=== PATIENT | male | born 2000 | race Caucasian/White ===

== ENCOUNTER → 2021-10-01 13:15 | Outpatient (CLI) | payer BC, SELFPAY | PROVIDERS: Visit Provider Family Medicine | DX: Z23 Encounter for immunization (principal) ==

== ENCOUNTER 2022-01-19 01:45 | Emergency (ER) | payer BC, SELFPAY ==
[2022-01-19 01:45] VITALS: BP 144/77; PULSE 87; RESP 15; TEMP 36.2; O2SAT 96; BMI 27.9
--- NOTE | 2022-01-19 02:00 | RAD_ITS ---
STUDY: X-RAY CHEST REASON FOR EXAM: Male, 21 years old. cp TECHNIQUE: Single AP portable view of the chest. COMPARISON: None. FINDINGS: The lungs are clear and expanded. There is no demonstrated pleural abnormality. Normal size heart. Normal mediastinum and dom. Normal visualized pulmonary arteries. Normal visualized aortic arch and descending thoracic aorta. Normal visualized thoracic spine. Normal visualized ribs, clavicles, and shoulders. There is no demonstrated abnormality of the visualized soft tissue structures of the upper abdomen. RAD/Chest 1 View (Portable) IMPRESSION: Normal x-ray examination of the chest. Electronically Signed: Viv Villavicencio MD at 4:11 EDT ,
--- NOTE | 2022-01-19 02:00 | EKG12_ITS ---
Test Reason : CP Blood Pressure : / mmHG Vent. Rate : 099 BPM Atrial Rate : 099 BPM P-R Int : 142 ms QRS Dur : 098 ms QT Int : 348 ms P-R-T Axes : 070 035 025 degrees QTc Int : 446 ms Normal sinus rhythm Normal ECG Confirmed by IRAJ VALENCIA, MURIEL ([id number]), purchase request editor ANISH SLOAN ([id number]) on 01/19/2022 10:41:40 AM Referred By: ANGE Confirmed By:MURIEL GALO MD
--- NOTE | 2022-01-19 02:03 | EX.ED.DYSGE1 ---
HPI History of Present Illness Chief Complaint: Chest Pain Informant: patient Onset/Context/Timing Onset: Today Current Severity: Mild Maximum Severity: Moderate Narrative Narrative: Patient presents secondary to chest pain. He states he woke from sleep approximate 45 minutes ago with pain just to the right of the sternum. He describes it as a pressure. He states when he went to bed last night he had some mild pain over the left anterior lateral chest. He does report some shortness of breath. He states he is just getting over a stomach bug with diarrhea. He has not had as much to eat as normal the last several days. He has not noted fever or chills. [facility] Medical History Anxiety Depression Home Medications fluoxetine 20 mg DAILY 01/19/22 [History Last Taken Unknown] Allergy/AdvReac Type Severity Reaction Status Date / Time No Known Allergies Allergy Verified 01/19/22 01:51 Surgical History no surgical history Social History Smoking Status: Never smoker ROS ROS ED Constitutional Constitutional ED: Denies chills or fever(s) Eyes Eyes: Denies change in vision ENT ENT ED: Denies sore throat Cardiovascular Cardiovascular: Reports chest pain Respiratory/Chest Respiratory/Chest: Reports dyspnea; Denies cough Gastrointestinal Gastrointestinal: Reports diarrhea; Denies abdominal pain, nausea or vomiting Genitourinary Genitourinary ED: Denies dysuria Musculoskeletal Musculoskeletal: Denies back pain Integumentary Denies rash Neurologic Neurologic: Denies headache(s) or weakness Allergic/Immunologic Allergic/Immunologic ED: Denies urticaria EXAM Physical Exam Const Vital Signs: 01/19/22 01:45 01/19/22 01:49 01/19/22 03:16 Temperature 97.1 F L 98.2 F Temperature Source Temporal Temporal Pulse Rate 87 79 Respiratory Rate 15 18 Respiratory Effort Normal Non-Labored Respiratory Pattern Normal Blood Pressure 144/77 H 136/89 H Blood Pressure Mean 99 104 Pulse Ox 96 99 Oxygen Delivery Method Room Air Room Air Positive well nourished and well developed General Appearance ED: well developed HEENT Reports moist mucous membranes Eyes PERRL and EOMs intact bilaterally Neck supple Chest Wall inspection of chest normal and palpation of chest normal Resp normal respiratory effort and clear to auscultation bilaterally Cardio regular rate and regular rhythm GI Auscultation: normoactive bowel sounds Palpation: soft and tender epigastric (Mild epigastric tenderness); Negative for guarding or rebound tenderness present Extremity normal to inspection Neuro oriented x3 Sensorium / Orientation: alert Psych mental status grossly normal Skin no rashes or lesions noted MDM MDM MDM Narrative Medical decision making narrative: Lab work, EKG, chest x-ray obtained. Patient given IV Protonix. Lab Data Attestation: I reviewed the patient's lab results. Labs: Laboratory Results - last 24 hr 01/19/22 01/19/22 01/19/22 02:20 02:20 02:20 WBC 11.0 RBC 4.96 Hgb 15.1 Hct 42.0 MCV 84.7 MCH 30.4 MCHC 36.0 RDW Std Deviation 36.8 RDW Coeff of Marium 11.9 Plt Count 323 MPV 9.7 Immature Gran % (Auto) 0.200 Neut % (Auto) 72.1 H Lymph % (Auto) 14.6 L [place] % (Auto) 12.5 H Eos % (Auto) 0.5 Baso % (Auto) 0.1 Absolute Neuts (auto) 7.9 H Absolute Lymphs (auto) 1.60 Nucleated RBC % 0 D-Dimer Quant (PE/DVT) < 0.27 L Sodium 137 Potassium 3.6 Chloride 104 Carbon Dioxide 24.0 Anion Gap 9 BUN 16 Creatinine 1.06 Estim Creat Clear Calc 111.16 Est GFR (MDRD) Af Amer 114 Est GFR (MDRD) Non-Af 94 BUN/Creatinine Ratio 15.1 Glucose 107 H Calcium 8.6 Total Bilirubin 0.30 Direct Bilirubin 0.12 AST 129 H ALT 66 H Alkaline Phosphatase 91 Troponin I High Sens < 3 L Total Protein 7.4 Albumin 3.6 Globulin 3.8 Lipase 94 Radiography Chest X-Ray - ED: 1 View, Read by ED Physician, Normal, Heart, Lungs and Mediastinum EKG Initial EKG: Attestation: I personally reviewed and interpreted this EKG as follows: Interpretation: Sinus Rhythm (Sinus at 99 with no acute ischemia.) Treatment and Re-Evaluation Narrative: EKG reveals no acute ischemia. Chest x-ray per my interpretation is normal. Lab work is normal including negative D-dimer and troponin. LFTs and lipase unremarkable other than slight elevation in AST to 129 and ALT to 66. On repeat evaluation patient resting comfortably. He does report improvement in his symptoms. He does report some mild right shoulder pain that seems to be worse with movement. We discussed his test results and he is reassured with these findings. I did recommend frequent small meals and [id number] antacid to help his stomach. He is still recovering from recent GI illness. Return instructions are provided. Discharge Plan Triage Chief Complaint: Chest Pain ED Provider: Rand Ortiz Dx/Rx/DC Orders Clinical Impression: Atypical chest pain Instructions: ED Chest Pain, Noncardiac Prescriptions: No Action fluoxetine 20 mg tablet 20 mg DAILY RF: 0 Primary Care Provider: Care Physician,No Primary Referrals: [facility] [GROUP OF PHYSICIANS] - 3-5 Days if not improving Care Physician,No Primary [Primary Care Provider] - Disposition Disposition: Home, Self Care
[2022-01-19] MEDS: Ondansetron 4 MG/2 ML Vial IV (02:22)
[2022-01-19 02:29] LABS: Absolute Neutrophil Count 7.9 X10^3/uL (2.0-7.7); Basophil# 0.01 X10^3/uL; Basophil% 0.1 % (0-1); Eosinophil# 0.05 X10^3/uL; Eosinophils% 0.5 % (0-5); Hemoglobin 15.1 g/dL (13.0-16.5); Lymphocyte % 14.6 % (19-41); Mean Corpuscular Hgb 30.4 pg (27.0-32.0); Mean Corpuscular Volume 84.7 fL (80-94); Mean Platelet Vol. 9.7 fl (6.2-12.0); Monocyte# 1.37 X10^3/uL; Monocyte% 12.5 % (0-10); NRBC Flagged by Analyzer 0 % (0-5); Neutrophil % 72.1 % (47-70); Platelet Count 323 K/mm3 (150-450); RBC Distribution Width CV 11.9 % (11.6-14.6); RBC Distribution Width SD 36.8 fl (35.1-43.9); Red Blood Count 4.96 M/mm3 (4.6-6.2)
[2022-01-19 02:40] LABS: D-Dimer Quantitative (DVT/PE) < 0.27 FEU/ug/m (0.27-0.49)
[2022-01-19 02:48] LABS: AST(SGOT) 129 U/L (15-37); Alanine Aminotransfer ALT/SGPT 66 U/L (16-61); Albumin, Serum 3.6 g/dL (3.2-5.0); Alkaline Phosphatase 91 U/L (45-117); Anion Gap 9 (5-15); BUN 16 mg/dL (7-18); BUN/Creat Ratio 15.1 RATIO (10-20); Bilirubin, Direct 0.12 mg/dL (0.00-0.30); Calcium,Total 8.6 mg/dL (8.5-10.1); Chloride 104 mmol/L (98-107); Creatinine, Serum 1.06 mg/dL (0.70-1.30); EST Glomerular Filtration Rate 94 mL/min (>60); Est Glom Filt Rate - Afr Amer 114 mL/min (>60); Estimated Creatinine Clearance 111.16 ml/min; Globulin 3.8 g/dL (2.2-4.2); Glucose 107 mg/dL (74-106); Lipase 94 U/L (73-393); Potassium 3.6 mmol/L (3.5-5.1); Protein, Total 7.4 g/dL (6.4-8.2); Sodium Level 137 mmol/L (136-145); Troponin-I HS < 3 pg/mL (3.0-78.0)
[2022-01-19 03:16] VITALS: BP 136/89; PULSE 79; RESP 18; TEMP 36.8; O2SAT 99
[2022-01-19 03:42] VITALS: BP 122/74; PULSE 74; RESP 17; O2SAT 99
== END 2022-01-19 03:43 | disposition home or self-care (01) ==
PROVIDERS: Emergency Provider Emergency Medicine; Visit Provider Emergency Medicine
DX: R07.89 Other chest pain (principal); R06.02 Shortness of breath; R19.7 Diarrhea, unspecified; F32.A Depression, unspecified; F41.9 Anxiety disorder, unspecified; M25.511 Pain in right shoulder
CPT/HCPCS: 71045; 80048; 80076; 83690; 84484; 85025; 85379; 93005; 96365; 96375; 99285; A4216; J2405

== ENCOUNTER 2022-12-10 02:22 | Emergency (ER) | payer BC, SELFPAY ==
[2022-12-10 02:23] VITALS: BP 166/69; PULSE 83; RESP 16; TEMP 37.2; O2SAT 98; BMI 32.1
--- NOTE | 2022-12-10 02:59 | CT_ITS ---
INDICATION: facial swelling/abscess EXAMINATION: CT FACIAL BONES - CT Maxillofacial W/ Contrast Injection TECHNIQUE: Helically acquired images were obtained of the facial bones. A radiation dose optimization technique was used for this scan. IV Contrast dosage and agent: None. COMPARISON: None. FINDINGS: SOFT TISSUES: There is diffuse enlargement of the left parotid gland with adjacent fat stranding consistent with parotiditis. No discrete fluid collections. VISUALIZED PARANASAL SINUSES: Clear. VISUALIZED MASTOID AIR CELLS: Clear. FACIAL BONES, MANDIBLE AND TMJs: No displaced facial bone fracture. No lytic or blastic abnormality. VISUALIZED DENTITION: No periodontal osseous erosion. ORBITAL CONTENTS: Both globes, extraocular muscles and retrobulbar fat appear unremarkable. CT/Sinus/Facial Bone WITH Contras IMPRESSION: There is diffuse enlargement of the left parotid gland with adjacent fat stranding consistent with parotiditis. Electronically Signed: Viv Villavicencio MD at 4:17 EST ,
[2022-12-10] MEDS: dexAMETHasone 10 MG/ML Vial IV (03:24)
[2022-12-10] MEDS: Morphine 4 MG/ML Syringe IV (03:24)
[2022-12-10] MEDS: 0.9% Normal Saline 1,000 ML 999 ML IV (03:24)
[2022-12-10] MEDS: Ondansetron 4 MG/2 ML Vial IV (03:24)
[2022-12-10 03:37] LABS: Absolute Lymphocyte Count 1.04 X10^3/uL (0.83-4.51); Absolute Neutrophil Count 15.4 X10^3/uL (2.0-7.7); Basophil# 0.05 X10^3/uL; Basophil% 0.3 % (0-1); Eosinophil# 0.02 X10^3/uL; Eosinophils% 0.1 % (0-5); Lymphocyte # 1.04 X10^3/ul (0.83-4.51); Lymphocyte % 5.7 % (19-41); Mean Corp Hgb Conc 34.1 g/dL (32-36); Mean Corpuscular Hgb 30.4 pg (27.0-32.0); Mean Corpuscular Volume 89.1 fL (80-94); Monocyte% 8.8 % (0-10); NRBC Flagged by Analyzer 0 % (0-5); Neutrophil # 15.42 X10^3/uL (2.7-7.7); Neutrophil % 84.8 % (47-70); POSITIVE DIFFERENTIAL YES; Platelet Count 351 K/mm3 (150-450); RBC Distribution Width CV 12.1 % (11.6-14.6); RBC Distribution Width SD 39.4 fl (35.1-43.9); White Blood Count 18.2 K/mm3 (4.4-11.0)
[2022-12-10 03:39] LABS: Differential Indicated SCAN CRITERIA MET
[2022-12-10 04:14] LABS: Anion Gap 7 (5-15); BUN 15 mg/dL (7-18); BUN/Creat Ratio 17.3 RATIO (10-20); Calcium,Total 8.9 mg/dL (8.5-10.1); Chloride 104 mmol/L (98-107); Creatinine, Serum 0.87 mg/dL (0.70-1.30); EST Glomerular Filtration Rate 118 mL/min (>60); Est Glom Filt Rate - Afr Amer 143 mL/min (>60); Estimated Creatinine Clearance 134.31 ml/min; Glucose 92 mg/dL (74-106); Sodium Level 140 mmol/L (136-145)
[2022-12-10 04:26] LABS: Differential Comment SCANNED
--- NOTE | 2022-12-10 04:38 | EDS_ITS ---
HPI History of Present Illness Chief Complaint: Other, Pain/Inj Narrative Narrative: Patient is a 22-year-old male from the [facility]. He reports no significant past medical history. He states about 3 days ago he noticed that the left side of his face was tender without any type of trauma. He states as time is past he has had increasing swelling. He states he is not having any difficulty breathing or swallowing but the swelling seems to be worse each day and secondary to his he is concerned for an infective process and therefore comes in for evaluation [facility] Medical History Anxiety Depression Home Medications fluoxetine 20 mg tablet 10 mg PO DAILY 01/19/22 [History Last Taken Unknown] amoxicillin 875 mg-potassium clavulanate 125 mg tablet 1 tab PO BID 10 days #20 tabs 12/10/22 [Rx Last Taken Unknown] hydrocodone-acetaminophen 5-325mg 5mg-325mg 1 tab PO Q6H PRN PRN Pain 3 days #12 TABLETS 12/10/22 [Rx Last Taken Unknown] Allergy/AdvReac Type Severity Reaction Status Date / Time No Known Allergies Allergy Verified 01/19/22 01:51 Surgical History no surgical history Social History Smoking Status: Never smoker ROS ROS ED Constitutional Constitutional ED: Denies chills or fever(s) ENT ENT ED: Reports other Details: Positive left facial pain ; Denies sore throat Cardiovascular Cardiovascular: Denies chest pain Respiratory/Chest Respiratory/Chest: Denies cough or dyspnea Gastrointestinal Gastrointestinal: Denies abdominal pain, diarrhea, nausea or vomiting Genitourinary Genitourinary ED: Denies dysuria Musculoskeletal Musculoskeletal: Denies neck pain Integumentary Denies rash Neurologic Neurologic: Denies headache(s) Hematologic/Lymphatic Hematologic/Lymphatic: Denies easy bleeding or easy bruising EXAM Physical Exam Const Vital Signs: 12/10/22 04:58 Pulse Rate 64 Respiratory Rate 19 H Blood Pressure 146/89 H Pulse Ox 100 Positive well nourished and well developed General Appearance ED: well developed HEENT Reports moist mucous membranes HEENT Narrative: Patient has diffuse swelling to the left lateral face that extends from the tragus of the ear down to the angle of the jaw. There is no obvious fluctuation or abscess formation noted. No overlying erythema or warmth. No lymphangitic streaking. Posterior pharynx exam displays no erythema no hard palate petechiae no trismus no change in voice or difficulty with secretions Eyes PERRL and EOMs intact bilaterally Neck supple Neck Narrative: Positive anterior cervical lymphadenopathy No crepitance palpated Resp normal respiratory effort and clear to auscultation bilaterally Cardio regular rate and regular rhythm Extremity normal to inspection Neuro oriented x3 and CN's II-XII intact bilaterally Sensorium / Orientation: alert Psych mental status grossly normal Skin no rashes or lesions noted Skin Narrative: Soft tissue changes to the left face as documented above MDM MDM MDM Narrative Medical decision making narrative: Patient presented to the ER afebrile but had increasing swelling to the left face with no trauma. There is concern for developing abscess parotid stone or parotid gland infection. Secondary to his basic blood work with a CT of the face was obtained. Labs showed leukocytosis 18.2 but otherwise no clinically significant finding. CT scan confirmed inflammation of the parotid gland without obvious stone or signs of drainable fluid collection. At this time the patient is afebrile he is in no acute respiratory distress and does not have signs of septicemia. There is no obvious fluid collection to drain therefore there is no need for surgical consultation. He will be started antibiotics secondary to the infected/inflamed parotid gland but is otherwise safe for discharge as he has no need for supplemental oxygen or signs of respiratory distress or systemic infection Lab Data Attestation: I reviewed the patient's lab results. Labs: Laboratory Results - last 24 hr 12/10/22 12/10/22 03:20 03:20 WBC 18.2 H RBC 4.60 Hgb 14.0 Hct 41.0 MCV 89.1 MCH 30.4 MCHC 34.1 RDW Std Deviation 39.4 RDW Coeff of Marium 12.1 Plt Count 351 MPV 10.0 Immature Gran % (Auto) 0.300 Neut % (Auto) 84.8 H Lymph % (Auto) 5.7 L [place] % (Auto) 8.8 Eos % (Auto) 0.1 Baso % (Auto) 0.3 Absolute Neuts (auto) 15.4 H Absolute Lymphs (auto) 1.04 Nucleated RBC % 0 Differential Comment SCANNED Diff Path Review Reviewed Sodium 140 Potassium 4.0 Chloride 104 Carbon Dioxide 29.0 Anion Gap 7 BUN 15 Creatinine 0.87 Estim Creat Clear Calc 134.31 Est GFR (MDRD) Af Amer 143 Est GFR (MDRD) Non-Af 118 BUN/Creatinine Ratio 17.3 Glucose 92 Calcium 8.9 Radiography Diagnostic Testing: Clinical Impression(s) from Imaging Studies Facial/Sinus 12/10/22 02:59 IMPRESSION: There is diffuse enlargement of the left parotid gland with adjacent fat stranding consistent with parotiditis. Electronically Signed: Viv Villavicencio MD at 4:17 EST , Discharge Plan Triage Chief Complaint: Other, Pain/Inj ED Provider: Toñito Silverio Dx/Rx/DC Orders Clinical Impression: Acute parotitis Instructions: ED Salivary Gland Infection Prescriptions: New amoxicillin-pot clavulanate 875-125 mg tablet 1 tab PO BID 10 Days Qty: 20 0RF hydrocodone-acetaminophen 5-325 mg tablet 1 tab PO Q6H PRN PRN (Reason: Pain) 3 Days Qty: 12 0RF No Action fluoxetine 20 mg tablet 10 mg PO DAILY Stand Alone Forms: ED Work / School Excuse Primary Care Provider: KENNEDI LEIGH Referrals: KENNEDI LEIGH [Other] Activity Restrictions/Additional Instructions: Your work-up today shows an inflamed/infected parotid gland. Take your antibiotic as directed to help resolve this. Also use sour/tart candies to help drain fluid from the parotid gland and reduce swelling. Return to the ER if you have any further concerns or worsening of symptoms Disposition Disposition: Home, Self Care Discharge Date/Time: 12/10/22 05:41
[2022-12-10 04:58] VITALS: BP 146/89; PULSE 64; RESP 19; O2SAT 100
[2022-12-10 12:46] LABS: Pathologist Review Reviewed
== END 2022-12-10 05:41 | disposition home or self-care (01) ==
PROVIDERS: Emergency Provider Emergency Medicine; Visit Provider Emergency Medicine
DX: K11.21 Acute sialoadenitis (principal)
CPT/HCPCS: 70487; 80048; 85025; 96365; 96366; 96375; 99283; Q9967; A4216; J2405

== ENCOUNTER 2023-01-22 21:49 | Emergency (ER) | payer BC, SELFPAY ==
[2023-01-22 21:49] VITALS: BP 135/72; PULSE 145; RESP 18; TEMP 37; BMI 28.2
--- NOTE | 2023-01-22 22:28 | EDS_ITS ---
HPI History of Present Illness Chief Complaint: Substance Abuse Narrative Narrative: Patient is a 22-year-old male with no significant past medical history. He states that a few hours prior to arrival he took a 250 mg edible THC gummy. He states he is done THC Gummies in the past but not this high of a dose. He states at this point he feels very nervous and anxious and nauseous and he was unsure if this is relation to the increased dosage or if he had poisoned himself and secondary to his comes in for evaluation. He states that he did this simply in order to get high and denies any homicidal or suicidal ideation [facility] Medical History (Updated 01/22/23 @ 22:[address] Toñito Silverio DO) Anxiety Depression Marijuana abuse Home Medications fluoxetine 20 mg tablet 10 mg PO DAILY 01/19/22 [History Last Taken Unknown] amoxicillin 875 mg-potassium clavulanate 125 mg tablet 1 tab PO BID 10 days #20 tabs 12/10/22 [Rx Last Taken Unknown] hydrocodone-acetaminophen 5-325mg 5mg-325mg 1 tab PO Q6H PRN PRN Pain 3 days #12 TABLETS 12/10/22 [Rx Last Taken Unknown] Allergy/AdvReac Type Severity Reaction Status Date / Time No Known Allergies Allergy Verified 01/19/22 01:51 Social History Smoking Status: Never smoker ROS ROS ED Constitutional Constitutional ED: Denies chills or fever(s) Eyes Eyes: Denies change in vision ENT ENT ED: Denies sore throat Cardiovascular Cardiovascular: Reports palpitations and racing heartbeat; Denies chest pain Respiratory/Chest Respiratory/Chest: Denies cough or dyspnea Gastrointestinal Gastrointestinal: Reports nausea; Denies abdominal pain, diarrhea or vomiting Genitourinary Genitourinary ED: Denies dysuria Musculoskeletal Musculoskeletal: Denies myalgias Integumentary Denies rash Neurologic Neurologic: Reports weakness; Denies headache(s) Psychiatric Psychiatric: Denies suicidal ideation or suicidal thoughts Hematologic/Lymphatic Hematologic/Lymphatic: Denies easy bleeding or easy bruising EXAM Physical Exam Const Vital Signs: 01/22/23 21:49 01/22/23 21:49 Temperature 98.6 F 98.6 F Temperature Source Temporal Temporal Pulse Rate 145 H 145 H Respiratory Rate 18 18 Blood Pressure 135/72 H 135/72 H Blood Pressure Mean 93 93 Positive well nourished and well developed General Appearance ED: well developed HEENT Reports moist mucous membranes Eyes EOMs intact bilaterally Eyes Narrative: Pupils are dilated and sluggish to respond to light consistent with THC use and there is slight scleral injection noted as well Neck supple Neck Narrative: No nuchal rigidity or meningeal signs present Chest Wall palpation of chest normal Resp normal respiratory effort and clear to auscultation bilaterally Cardio regular rhythm Rate: tachycardic and other Other Details: Tachycardic rate with regular rhythm Radial pulses are plus 2 out of 4 bilaterally are equal and GI non-tender and non-distended GI Narrative: Abdomen is soft nontender nondistended with hyperactive bowel sounds no voluntary guarding or rigidity no pulsatile mass Auscultation: hyperactive bowel sounds Palpation: soft Extremity normal to inspection Neuro oriented x3 and CN's II-XII intact bilaterally Sensorium / Orientation: alert Psych Psych Narrative: Patient has a nervous/anxious affect without homicidal or suicidal ideation Skin no rashes or lesions noted MDM MDM MDM Narrative Medical decision making narrative: Patient presented to the ER tachycardic consistent with THC overdose. The patient stated he took the THC simply to get high and there was no homicidal or suicidal ideation and therefore there is no need for psychiatric evaluation. We discussed that there is no antidote for this but he could benefit from IV hydration as well as medication to help control the nausea. The patient states that as he knows that this will simply improve with time he does not want to stay in the ER any longer and he does not feel like he needs any type of medical intervention. Therefore as patient is not requiring further evaluation from psychiatric standpoint and is protecting his airway without signs of respiratory distress he is otherwise safe for discharge History & Record Review Discussion w/independent historian: Patient Discharge Plan Triage Chief Complaint: Substance Abuse ED Provider: Toñito Silverio Dx/Rx/DC Orders Clinical Impression: Accidental overdose, Mild tetrahydrocannabinol (THC) abuse Instructions: ED Marijuana Abuse Prescriptions: No Action fluoxetine 20 mg tablet 10 mg PO DAILY amoxicillin-pot clavulanate 875-125 mg tablet 1 tab PO BID 10 Days Qty: 20 0RF hydrocodone-acetaminophen 5-325 mg tablet 1 tab PO Q6H PRN PRN (Reason: Pain) 3 Days Qty: 12 0RF Primary Care Provider: Care Physician,No Primary Referrals: [facility] Doctor,Out of [Non-Staff] - Activity Restrictions/Additional Instructions: Your symptoms are consistent with a THC overdose. This is not life-threatening and there is no antidote for this. You need to allow the drug to metabolize out of your body which can take 8 to 12 hours. Disposition Disposition: Home, Self Care Discharge Date/Time: 01/22/23 22:53
== END 2023-01-22 22:53 | disposition home or self-care (01) ==
LOC: ED 22:42
PROVIDERS: Emergency Provider Emergency Medicine; Visit Provider Emergency Medicine
DX: T40.711A Poisoning by cannabis, accidental (unintentional), initial encounter (principal); F12.10 Cannabis abuse, uncomplicated; R11.0 Nausea; R00.2 Palpitations; R53.1 Weakness
CPT/HCPCS: 99284